=== PATIENT | male | born 1975 ===

== ENCOUNTER 2016-07-15 19:46 | Emergency (ER) | payer OTHER ==
[2016-07-15 20:01] VITALS: TEMP 98; O2SAT 99
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
[2016-07-15 22:20] VITALS: BP 152/78; PULSE 71; RESP 20
[2016-07-15] MEDS ORDERED: Amoxicillin-Clav 875-125 mg Tab PO STA (22:36)
[2016-07-15] MEDS ORDERED: Amoxicillin-Clav 875-125 mg Tab PO ONE (22:40)
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
== END 2016-07-15 23:23 | disposition home or self-care (01) ==
LOC: C.ER 19:46
DX: S02.32XA Fracture of orbital floor, left side, initial encounter for closed fracture (principal); Y04.2XXA Assault by strike against or bumped into by another person, initial encounter; Y92.414 Local residential or business street as the place of occurrence of the external cause